=== PATIENT | female | born 1980 | race Caucasian/White ===

== ENCOUNTER 2017-12-18 05:50 | Day surgery (SDC) | payer BC, OTHER ==
[2017-12-18] MEDS ORDERED: CEFAZOLIN 2 GM/50 ML (PMX) 50 ML IVPB (06:00)
[2017-12-18] MEDS ORDERED: BUPIVACAINE 0.25%/EPI (SDV) 30 ML INJ (07:05)
[2017-12-18] MEDS: LACTATED RINGER'S 1,000 ML IV* (07:13)
[2017-12-18] MEDS ORDERED: ALBUTEROL 0.083% (NEB) 2.5 MG/3 ML AMP HHN (07:30)
[2017-12-18] MEDS ORDERED: FENTAnyl 50 MCG/ML VIAL IV ×2 (07:30)
[2017-12-18] MEDS ORDERED: HYDROmorphONE 1 MG/5 ML IV SYRINGE IV (07:30)
[2017-12-18] MEDS ORDERED: DIPHENHYDRAMINE 50 MG INJ IV (07:30)
[2017-12-18] MEDS ORDERED: MEPERIDINE 25 MG INJ IV (07:30)
[2017-12-18] MEDS ORDERED: METOCLOPRAMIDE 10 MG INJ IV (07:30)
[2017-12-18 07:43] LABS: PROTIME 12.2 Sec (11.9-14.9)
[2017-12-18 07:44] LABS: PARTIAL THROMBOPLASTIN TIME 26.4 Sec (23.0-35.0)
[2017-12-18] MEDS ORDERED: ROPIVACAINE 0.5 % 30 ML VIAL (07:57)
[2017-12-18] MEDS ORDERED: FENTAnyl 50 MCG/ML VIAL (07:57)
[2017-12-18] MEDS: BUPIVACAINE 0.25%/EPI (SDV) 30 ML INJ INJ ×2 (08:23)
[2017-12-18] MEDS ORDERED: CEFAZOLIN 1 GM INJ (08:36)
[2017-12-18] MEDS ORDERED: PROPOFOL 20 ML (08:36)
[2017-12-18] MEDS ORDERED: SUCCINYLCHOLINE CHLORIDE 100 MG/5 ML SYG IV (08:36)
[2017-12-18] MEDS ORDERED: LIDOCAINE 1% (MDV) 20 ML INJ (08:36)
[2017-12-18] MEDS ORDERED: ROCURONIUM 50 MG INJ (08:36)
[2017-12-18] MEDS ORDERED: SUGAMMADEX SODIUM 200 MG/2 ML VIAL IV (08:36)
[2017-12-18] MEDS: HYDROmorphONE 1 MG/5 ML IV SYRINGE IV ×3 (09:05→09:22)
[2017-12-18] MEDS: ONDANSETRON 4 MG INJ IV (09:07)
== END 2017-12-18 10:05 | disposition home or self-care (01) ==
LOC: SDS 05:50
DX: Z30.2 Encounter for sterilization (principal)
CPT/HCPCS: 58670; 85610; 85730